=== PATIENT | female | born 1950 | race Native Hawaiian/Other Pacific Islander ===

== ENCOUNTER 2016-11-08 06:48 | Day surgery (SDC) | payer BC ==
[2016-11-08] MEDS ORDERED: Levofloxacin 500MG/100ML D5W 100 ML IV ONE ×2 (07:03→07:05)
[2016-11-08] MEDS ORDERED: Lactated Ringers 1,000 ML IV ONE ×2 (07:05→07:39)
--- NOTE | 2016-11-08 07:28 | HP ---
DATE OF SURGERY: 11/08/2016 ADMISSION DIAGNOSIS: Left breast lesion. ANTICIPATED PROCEDURE: Left prior needle placement breast biopsy. HISTORY OF PRESENT ILLNESS: The patient has lesion and presents for excision. PAST MEDICAL HISTORY: ALLERGIES: MEDICATIONS: Simvastatin, Metoprolol, Sertraline. PAST SURGICAL HISTORY: Tubal ligation. SOCIAL HISTORY: Negative. FAMILY HISTORY: Negative. REVIEW OF SYSTEMS: Hypertension controlled. PHYSICAL EXAMINATION: VITAL SIGNS: Normal. CHEST: Clear. COR: Regular. BREASTS: Breast negative. Axilla negative. Supraclavicular area negative. IMPRESSION: Lesion left breast. PLAN: Prior needle placement breast biopsy.
[2016-11-08] MEDS ORDERED: Lactated Ringers 1,000 ML IV SCH (07:30)
[2016-11-08] MEDS ORDERED: Sensorcaine 0.25% 10 ML ONE (07:39)
[2016-11-08] MEDS ORDERED: Decadron 4 MG INJ IV ONE (09:00)
[2016-11-08] MEDS ORDERED: XYLOCAINE 1%/Epi 1:100000 MDV 20 ML IJ ONE (09:00)
[2016-11-08] MEDS ORDERED: TORAdol 30 mg Injection IV ONE (09:00)
[2016-11-08] MEDS ORDERED: SUBLIMAZE 100 MCG/2 ML IV ONE (09:00)
[2016-11-08] MEDS ORDERED: Zofran 4 MG/2 ML VIAL IV ONE (09:00)
[2016-11-08] MEDS ORDERED: DIPRIVAN 200 MG/20 ML IV ONE (09:00)
[2016-11-08 11:46] VITALS: PULSE 59
[2016-11-08 12:03] VITALS: BP 134/65; O2SAT 99
--- NOTE | 2016-11-08 14:12 | XRAY ---
Indication: Left breast mass worked up at [facility] in [facility]. Informed consent obtained. Initial sonogram of the left breast 2:00 mass was performed for localization. The skin/breast was then prepped and draped in sterile fashion. 1% lidocaine plain used for local anesthesia. A 10 cm 20-gauge Ghiatas breast needle was then percutaneously inserted into the 2:00 breast mass using ultrasound guidance. The breast mass was unusually hard and therefore the needle barely penetrated the mass. Due to risk of needle fracturing/bending, a second shorter 5 cm Ghiatas breast needle was then percutaneously inserted parallel to the first needle again using ultrasound guidance. Once again the needle barely penetrated the hard mass. At this point, the hook kirstin wires were inserted into each needle with the outer needles then removed. Both wires were secured. Patient was taken to surgery. Impression: Needle wire localization of the 2:00 breast mass was difficult due to the hardness of the breast mass. Kirstin wires inserted with the hook portion within the breast mass. Case was discussed with the surgeon via telephone following the procedure.
--- NOTE | 2016-11-08 14:13 | XRAY ---
Indication: Breast specimen. Sonogram of the submitted breast tissue demonstrates 2 needles within the specimen. The hypoechogenic breast mass in question not clearly identified. The surgeon, Dr. Arabella Esparza was present during the sonogram. I reviewed these images after the surgeon left the department. I discussed the case with the surgeon via telephone informing him of my findings. Breast specimen was sent to pathology.
--- NOTE | 2016-11-09 13:20 | OP ---
SURGERY DATE: 11/08/16 SURGERY TIME: 1026 PREOPERATIVE DIAGNOSIS: 1. LEFT BREAST LESION PER MAMMOGRAPHY. POSTOPERATIVE DIAGNOSIS: 1. LEFT BREAST LESION PER MAMMOGRAPHY. PROCEDURE: 1. Left prior needle placement breast biopsy. SURGEON: Christopher Esparza M.D. ANESTHESIA: General. COMPLICATIONS: None. CONDITION: Stable. INDICATION: 66 y/o with lesion per mammography. This was discussed with Dr. Jimenez. [place] to be just past the 2 wires. OPERATIVE PROCEDURE: General anesthetic. Routine prep and drape. The 2 wires were followed and expressly past the wires was taken. A very dense breast was present. There was some firmness in the center of the specimen. The US was nonspecific. There was no palpable residual lesion. Closed with 3-0 Vicryl, 4-0 Vicryl, and Steri-strips. Patient tolerated the procedure satisfactory.
== END 2016-11-08 12:10 | disposition home or self-care (01) ==
LOC: SDC 06:48
PROVIDERS: ATTEND Surgery
PROC: 0HBU3ZX Excision of Left Breast, Percutaneous Approach, Diagnostic (ICD-10-PCS; principal; 2016-11-08)
DX: N64.9 Disorder of breast, unspecified (principal); N64.59 Other signs and symptoms in breast; I10 Essential (primary) hypertension
CPT/HCPCS: 00400; 19083; 36415; 76642; 88305; J1100; J1885; J1956; J2405; J2704; J3010